=== PATIENT | female | born 1985 | race Hispanic/Latino ===

== ENCOUNTER 2022-03-06 16:25 | Emergency (ER) | payer OTHER ==
[~2022-03-06] VITALS: Ht 167.6 cm; Wt 110.3 kg
[2022-03-06] MEDS ORDERED: CEFTRIAXONE 1 GM VIAL IM ONE (17:45)
[2022-03-06] MEDS ORDERED: AUGMENTIN 500-1 EACH PO (17:46)
[2022-03-06] MEDS ORDERED: CEFTRIAXONE 1 GM VIAL ONE (18:07)
== END 2022-03-06 17:58 | disposition home or self-care (01) ==
LOC: FSED 17:16
DX: J02.0 Streptococcal pharyngitis (principal); R05.9 Cough, unspecified
CPT/HCPCS: 83518; 87400; 96372; 99283; J0696